=== PATIENT | female | born 1940 | race Caucasian/White ===

== ENCOUNTER → 2019-12-21 | Outpatient (CLI) | payer OTHER ==
[~2019-12-21] MED LIST: ALBU90OI61 INH; ASPI325 PO; Aspir 8181 MG PO; BUDE6HFA; Bystolic10 MG PO; ENOX40I SC; FLUSAL2505 IH; FURO20 PO; LEVFLO500 PO; LORA.5 PO; LOSA50 PO; METO25ER PO; MONT10T PO; POTA8 PO; Ventolin Soln3 ML; WARF5 PO
[2019-12-22 13:30] LABS: Bilirubin, Urine Neg (Neg); Blood, Urine Neg (Neg); Glucose Qualitative, Urine Neg (Neg); Ketones, Urine Neg (Neg); Leukocyte Esterase, Urine 1+ (Neg); Nitrite, Urine Neg (Neg); Protein, Urine Neg (Neg); Urobilinogen, Urine NORM (Normal)
[2019-12-22 13:41] LABS: Color, Urine Yellow (P-Yellow)
[2019-12-22 13:43] LABS: Appearance, Urine Clear (Clear); Bacteria Few /hpf; Red Blood Cells, Urine 0-2 /hpf (0-2); Squamous Epithelial Cells Few /hpf (Few)
== END | disposition home or self-care (01) ==
LOC: LAB 16:30 → LAB SHORT 16:30
PROVIDERS: Physician Assistant Medical
DX: N39.0 Urinary tract infection, site not specified (principal)
CPT/HCPCS: 81001; 87077; 87086; 87186

== ENCOUNTER → 2020-02-03 | Outpatient (CLI) | payer OTHER | END | disposition home or self-care (01) | LOC: LAB 11:21 → LAB SHORT 11:21 | DX: S81.802A Unspecified open wound, left lower leg, initial encounter (principal) | CPT/HCPCS: 87070; 87075; 87077; 87147; 87186; 87205 ==

== ENCOUNTER → 2020-02-23 | Outpatient (CLI) | payer OTHER | END | disposition home or self-care (01) | LOC: LAB SHORT 14:42 → LAB 14:42 | DX: F42.4 Excoriation (skin-picking) disorder (principal); R23.8 Other skin changes | CPT/HCPCS: 87070; 87075; 87205 ==

== ENCOUNTER → 2020-03-01 | Outpatient (CLI) | payer OTHER | END | disposition home or self-care (01) | LOC: LAB SHORT 11:40 → LAB 11:40 | DX: L08.9 Local infection of the skin and subcutaneous tissue, unspecified (principal); B95.62 Methicillin resistant Staphylococcus aureus infection as the cause of diseases classified elsewhere | CPT/HCPCS: 87070; 87205 ==

== ENCOUNTER 2020-09-28 09:05 | Emergency (ER) | payer OTHER ==
[~2020-09-28] VITALS: Ht 162.6 cm; Wt 90.7 kg
[~2020-09-28 09:05] MED LIST changes: -FURO20 PO
[2020-09-28] MEDS ORDERED: MELATONIN5 M1 PO (09:24)
[2020-09-28 10:39] LABS: BASOPHILS ABSOLUTE AUTO 0.05 K/mm3 (0.00-0.23); BASOPHILS PERCENT AUTO 1 % (0-2); EOSINOPHILS ABSOLUTE AUTO 0.09 K/mm3 (0.00-0.68); EOSINOPHILS PERCENT AUTO 1 % (0-6); Hematocrit 42.5 % (33.0-51.0); Hemoglobin 13.2 g/dL (11.5-16.0); IMMATURE GRAN ABSOLUTE AUTO 0.03 K/mm3 (0.00-0.10); IMMATURE GRAN PERCENT AUTO 0 % (0-1); LYMPHOCYTES ABSOLUTE AUTO 0.83 K/mm3 (0.84-5.20); LYMPHOCYTES PERCENT AUTO 10 % (21-46); MONOCYTES ABSOLUTE AUTO 0.67 K/mm3 (0.16-1.47); MONOCYTES PERCENT AUTO 8 % (4-13); Mean Corpuscular HGB 31.4 pg (26.0-34.0); Mean Corpuscular HGB Conc 31.1 g/dL (31.5-36.5); Mean Corpuscular Volume 101 fL (80-100); Mean Platelet Volume 8.9 fL (9.1-12.4); NEUTROPHILS PERCENT AUTO 80 % (41-73); Platelet Count 204 K/mm3 (150-400); RDW Standard Deviation 48.5 fL (35.1-46.3); Red Blood Cell Count 4.21 M/mm3 (3.80-5.20); White Blood Cell Count 8.57 K/mm3 (4.00-11.30)
[2020-09-28 10:58] LABS: Albumin, Blood 3.1 g/dL (3.4-5.0); Albumin/Globulin Ratio 0.9 (0.8-1.8); Bilirubin, Total 0.4 mg/dL (0.1-1.0); Bun/Creatinine Ratio 25.4 (12.0-20.0); Calcium, Blood 8.9 mg/dL (8.5-10.1); Creatinine, Blood 0.98 mg/dL (0.40-1.00); Globulin, Blood 3.6 g/dL (2.2-4.0); Potassium, Blood 3.7 mmol/L (3.5-5.5); Total Protein, Blood 6.7 g/dL (6.4-8.2)
[2020-09-28 12:43] LABS: Source, Urine Catheter
[2020-09-28 12:46] LABS: Appearance, Urine Clear (Clear); Bilirubin, Urine Neg (Neg); Blood, Urine 2+ (Neg); Color, Urine Yellow (P-Yellow); Glucose Qualitative, Urine Neg (Neg); Ketones, Urine Neg (Neg); Leukocyte Esterase, Urine 1+ (Neg); Nitrite, Urine Pos (Neg); Protein, Urine 1+ (Neg); Specific Gravity, Urine 1.015 (1.003-1.022); Urobilinogen, Urine NORM (Normal); pH, Urine 6.5 (5.0-8.0)
[2020-09-28 13:05] LABS: Bacteria Many /hpf; Squamous Epithelial Cells Few /hpf (Few)
[2020-09-28] MEDS ORDERED: METO100ER PO (14:02)
[2020-09-28] MEDS ORDERED: EUTHYROX25 MC1 PO (14:02)
[2020-09-28] MEDS ORDERED: XARELTO20 M1 PO (14:03)
[2020-09-28] MEDS ORDERED: Potassium Chlo20 ME1 PO (14:04)
[2020-09-28] MEDS ORDERED: FURO40 PO (14:04)
[2020-09-28] MEDS ORDERED: SPIRONOLACTONE25 MG PO (14:04)
[2020-09-28] MEDS ORDERED: MEMANTINE HCL ER7 MG PO (14:05)
[2020-09-28] MEDS ORDERED: CEPH500 PO (14:36)
== END 2020-09-28 15:20 | disposition home or self-care (01) ==
LOC: ER 09:05
PROVIDERS: Emergency Medicine
DX: N39.0 Urinary tract infection, site not specified (principal); I48.91 Unspecified atrial fibrillation; F03.90 Unspecified dementia, unspecified severity, without behavioral disturbance, psychotic disturbance, mood disturbance, and anxiety; Z88.0 Allergy status to penicillin; Z79.899 Other long term (current) drug therapy; Z79.51 Long term (current) use of inhaled steroids; Z79.01 Long term (current) use of anticoagulants
CPT/HCPCS: 36415; 70450; 80053; 81001; 85025; 93005; 93010; 96365; 99285-25; J0696

== ENCOUNTER → 2020-10-10 | Outpatient (CLI) | payer OTHER ==
[~2020-10-10] MED LIST changes: +CEPH500 PO; +EUTHYROX25 MC1 PO; +FURO40 PO; +MELATONIN5 M1 PO; +MEMANTINE HCL ER7 MG PO; +METO100ER PO; +Potassium Chlo20 ME1 PO; +SPIRONOLACTONE25 MG PO; +XARELTO20 M1 PO
[2020-10-11 10:24] LABS: Source, Urine Clean Catch
[2020-10-11 12:16] LABS: Appearance, Urine Hazy (Clear); Bilirubin, Urine Neg (Neg); Blood, Urine 1+ (Neg); Color, Urine Yellow (P-Yellow); Glucose Qualitative, Urine Neg (Neg); Ketones, Urine Neg (Neg); Leukocyte Esterase, Urine 3+ (Neg); Nitrite, Urine Pos (Neg); Protein, Urine Neg (Neg); Specific Gravity, Urine 1.015 (1.003-1.022); Urobilinogen, Urine NORM (Normal)
[2020-10-11 12:33] LABS: Bacteria Many /hpf; Red Blood Cells, Urine 0-2 /hpf (0-2); Squamous Epithelial Cells Mod /hpf (Few); White Blood Cells, Urine 25-50 /hpf (0-5)
== END | disposition home or self-care (01) ==
LOC: LAB SHORT 19:00
PROVIDERS: Physician Assistant Medical
DX: N39.0 Urinary tract infection, site not specified (principal)
CPT/HCPCS: 81001; 87077; 87086; 87186

== ENCOUNTER → 2021-01-13 | Outpatient (CLI) | payer OTHER ==
[2021-01-13 12:10] LABS: BASOPHILS ABSOLUTE AUTO 0.06 K/mm3 (0.00-0.23); BASOPHILS PERCENT AUTO 1 % (0-2); EOSINOPHILS PERCENT AUTO 1 % (0-6); Hematocrit 42.4 % (33.0-51.0); Hemoglobin 13.7 g/dL (11.5-16.0); IMMATURE GRAN ABSOLUTE AUTO 0.02 K/mm3 (0.00-0.10); IMMATURE GRAN PERCENT AUTO 0 % (0-1); LYMPHOCYTES ABSOLUTE AUTO 1.01 K/mm3 (0.84-5.20); LYMPHOCYTES PERCENT AUTO 13 % (21-46); MONOCYTES ABSOLUTE AUTO 0.82 K/mm3 (0.16-1.47); MONOCYTES PERCENT AUTO 10 % (4-13); Mean Corpuscular HGB 31.8 pg (26.0-34.0); Mean Corpuscular HGB Conc 32.3 g/dL (31.5-36.5); Mean Corpuscular Volume 98 fL (80-100); Mean Platelet Volume 9.7 fL (9.1-12.4); NEUTROPHILS ABSOLUTE AUTO 6.09 K/mm3 (1.96-9.15); NEUTROPHILS PERCENT AUTO 75 % (41-73); Platelet Count 242 K/mm3 (150-400); RDW Coefficient Variation 12.7 % (11.7-14.2); RDW Standard Deviation 45.9 fL (35.1-46.3); Red Blood Cell Count 4.31 M/mm3 (3.80-5.20)
[2021-01-13 12:40] LABS: Bun/Creatinine Ratio 15.5 (12.0-20.0); Creatinine, Blood 1.03 mg/dL (0.40-1.00); Potassium, Blood 4.1 mmol/L (3.5-5.5); Thyroid Stimulating Hormone 1.88 uIU/mL (0.360-4.800)
== END | disposition home or self-care (01) ==
LOC: LAB SHORT 10:15 → LAB 10:15
PROVIDERS: Internal Medicine
DX: E03.9 Hypothyroidism, unspecified (principal); I10 Essential (primary) hypertension
CPT/HCPCS: 80048; 84443; 85025

== ENCOUNTER → 2021-02-28 | Outpatient (CLI) | payer OTHER ==
[2021-02-28 14:17] LABS: Bun/Creatinine Ratio 16.7 (12.0-20.0); Calcium, Blood 9.4 mg/dL (8.5-10.1); Creatinine, Blood 1.14 mg/dL (0.40-1.00); Potassium, Blood 3.8 mmol/L (3.5-5.5)
== END | disposition home or self-care (01) ==
LOC: LAB 11:03 → LAB SHORT 11:03
PROVIDERS: Internal Medicine
DX: R60.0 Localized edema (principal)
CPT/HCPCS: 80048

== ENCOUNTER → 2021-03-22 | Outpatient (CLI) | payer OTHER ==
[2021-03-22 13:19] LABS: Bun/Creatinine Ratio 21.1 (12.0-20.0); Creatinine, Blood 1.14 mg/dL (0.40-1.00)
== END | disposition home or self-care (01) ==
LOC: LAB SHORT 11:29 → LAB 11:29
PROVIDERS: Internal Medicine
DX: E03.9 Hypothyroidism, unspecified (principal); R60.0 Localized edema
CPT/HCPCS: 80048; 84443

== ENCOUNTER → 2021-04-20 | Outpatient (CLI) | payer OTHER ==
[2021-04-20 12:23] LABS: Bun/Creatinine Ratio 15.2 (12.0-20.0); Calcium, Blood 8.9 mg/dL (8.5-10.1); Creatinine, Blood 0.99 mg/dL (0.40-1.00); Potassium, Blood 4.4 mmol/L (3.5-5.5)
== END | disposition home or self-care (01) ==
LOC: LAB 10:30 → LAB SHORT 10:30
PROVIDERS: Internal Medicine
DX: R73.9 Hyperglycemia, unspecified (principal)
CPT/HCPCS: 80048; 83036

== ENCOUNTER → 2021-08-10 | Outpatient (CLI) | payer OTHER ==
[2021-08-10 19:17] LABS: Source, Urine Clean Catch
[2021-08-10 20:24] LABS: Bilirubin, Urine Neg (Neg); Blood, Urine Neg (Neg); Glucose Qualitative, Urine Neg (Neg); Ketones, Urine Neg (Neg); Leukocyte Esterase, Urine 2+ (Neg); Nitrite, Urine Pos (Neg); Protein, Urine Neg (Neg); Urobilinogen, Urine NORM (Normal)
[2021-08-10 20:36] LABS: Appearance, Urine Hazy (Clear); Color, Urine Yellow (P-Yellow)
[2021-08-10 20:37] LABS: White Blood Cells, Urine 25-50 /hpf (0-5)
[2021-08-10 20:38] LABS: Bacteria Many /hpf; Red Blood Cells, Urine Not Seen /hpf (0-2); Squamous Epithelial Cells Few /hpf (Few)
== END | disposition home or self-care (01) ==
LOC: LAB 11:40 → LAB SHORT 11:40
PROVIDERS: Internal Medicine
DX: N39.0 Urinary tract infection, site not specified (principal)
CPT/HCPCS: 81001; 87077; 87086; 87186

== ENCOUNTER 2022-12-05 09:33 | Inpatient (IN) | payer OTHER ==
[~2022-12-05] VITALS: Ht 165.1 cm; Wt 76.2 kg
[~2022-12-05 09:33] MED LIST changes: -EUTHYROX25 MC1 PO; -FURO40 PO; -SPIRONOLACTONE25 MG PO; -XARELTO20 M1 PO
[2022-12-05 10:28] LABS: BASOPHILS ABSOLUTE AUTO 0.06 K/mm3 (0.00-0.23); BASOPHILS PERCENT AUTO 1 % (0-2); EOSINOPHILS ABSOLUTE AUTO 0.02 K/mm3 (0.00-0.68); EOSINOPHILS PERCENT AUTO 0 % (0-6); Hematocrit 50.9 % (33.0-51.0); Hemoglobin 16.7 g/dL (11.5-16.0); IMMATURE GRAN ABSOLUTE AUTO 0.03 K/mm3 (0.00-0.10); IMMATURE GRAN PERCENT AUTO 0 % (0-1); LYMPHOCYTES ABSOLUTE AUTO 0.67 K/mm3 (0.84-5.20); LYMPHOCYTES PERCENT AUTO 5 % (21-46); MONOCYTES ABSOLUTE AUTO 0.67 K/mm3 (0.16-1.47); MONOCYTES PERCENT AUTO 5 % (4-13); Mean Corpuscular HGB 31.3 pg (26.0-34.0); Mean Corpuscular HGB Conc 32.8 g/dL (31.5-36.5); Mean Corpuscular Volume 96 fL (80-100); Mean Platelet Volume 9.2 fL (9.1-12.4); NEUTROPHILS PERCENT AUTO 88 % (41-73); Platelet Count 228 K/mm3 (150-400); RDW Coefficient Variation 12.5 % (11.7-14.2); RDW Standard Deviation 44.5 fL (35.1-46.3); Red Blood Cell Count 5.33 M/mm3 (3.80-5.20); White Blood Cell Count 12.45 K/mm3 (4.00-11.30)
[2022-12-05 10:33] LABS: Source, Urine Straight Cath
[2022-12-05 10:37] LABS: Appearance, Urine Hazy (Clear); Bilirubin, Urine Neg (Neg); Blood, Urine 3+ (Neg); Color, Urine Yellow (P-Yellow); Glucose Qualitative, Urine Neg (Neg); Ketones, Urine Neg (Neg); Leukocyte Esterase, Urine 2+ (Neg); Nitrite, Urine Pos (Neg); Protein, Urine 3+ (Neg); Specific Gravity, Urine 1.025 (1.003-1.022); Urobilinogen, Urine NORM (Normal)
[2022-12-05 10:46] LABS: Hyaline Casts 50-100 /lpf (0-2)
[2022-12-05 10:48] LABS: Bacteria Many /hpf; Squamous Epithelial Cells Few /hpf (Few)
[2022-12-05 10:50] LABS: Granular Casts 0-2 /lpf (0)
[2022-12-05 10:56] LABS: Albumin, Blood 4.1 g/dL (3.4-5.0); Albumin/Globulin Ratio 1.1 (0.8-1.8); Bilirubin, Total 0.7 mg/dL (0.1-1.0); Bun/Creatinine Ratio 25.1 (12.0-20.0); Calcium, Blood 9.7 mg/dL (8.5-10.1); Creatinine, Blood 0.92 mg/dL (0.40-1.00); Globulin, Blood 3.9 g/dL (2.2-4.0); Potassium, Blood 3.8 mmol/L (3.5-5.5)
[2022-12-05 12:48] LABS: International Normalized Ratio 1.1; Prothrombin Time Results 11.5 Sec (9.7-11.5)
[2022-12-05 14:34] LABS: Hematocrit 40.5 % (33.0-51.0); Hemoglobin 13.3 g/dL (11.5-16.0)
[2022-12-05] MEDS ORDERED: FURO40 PO (15:18)
[2022-12-05] MEDS ORDERED: LEVETIRACETAM50014 PO (15:18)
[2022-12-05] MEDS ORDERED: HYDROCODONE-AC1 EA19 PO (15:18)
[2022-12-05] MEDS ORDERED: XARELTO20 M1 PO (15:19)
[2022-12-05] MEDS ORDERED: SPIRONOLACTONE25 MG PO (15:19)
[2022-12-05] MEDS ORDERED: EUTHYROX25 MC1 PO (15:19)
[2022-12-05] MEDS ORDERED: ALBU90OI INH (16:54)
[2022-12-05] MEDS ORDERED: ACET500 PO (16:55)
[2022-12-05] MEDS ORDERED: BISA10S PR (16:56)
[2022-12-05] MEDS ORDERED: DOCU100 PO (16:58)
[2022-12-05] MEDS ORDERED: MELATONIN5 M1 PO (16:59)
[2022-12-05] MEDS ORDERED: LACT10SY PO (16:59)
[2022-12-05] MEDS ORDERED: DULCOLAX400 MG/5 M PO (17:00)
[2022-12-05] MEDS ORDERED: SENNA LAXATIVE8.6 MG PO (17:01)
[2022-12-05] MEDS ORDERED: NYSTOP15 GM TOP (17:02)
--- NOTE | 2022-12-05 17:46 | NUR ---
MET WITH DAUGHTERSHAUN FAXED FROM [facility]-PT IS DNR WITH CONFORT CARE. PROVIDED EDUATION TO DAUGHTER ON WHAT COMFORT CARE IS, DISCUSSED WHAT HER GOALS OF CARE ARE FOR THE PT. ALEAH REPORTS THAT SHE FEELS LIKE SHE DOESNT KNOW WHAT IS GOING ON WITH HER MOTHER BECAUSE SHE HASNT SPOKEN TO THE DOCTOR. SHE DOESNT FEEL SHE CAN MAKE ANY DECISIONS UNIT SHE HAS MORE INFORMATION. PROVIDED INFORMATION ON PT ADMITTING DIAGNOSIS. PROVIDED EDUCATION ON UTI, SEPSIS AND THE COFFEE GROUND EMESIS. WE DISCUSSED WHAT TREATMENTS AND TESTING THAT IS BEING DONE TONSHAGGY AND WE WILL REVISIT TOMORROW WHEN THE DOCTOR ROUNDS, SHE IS AGREEABLE TO THIS PLAN. PROVIDED MY CARD WITH CONTACT INFORMATION ON IT SO SHE CAN CONTACT PALLIATIVE CARE FOR ANY ADDITIONAL NEEDS OR CONCERNS. CALL PLACED TO DR HARRIS, ADVISED AFTER PT WAS ADMITTED, WE RECIEVED PT SHAUN AND IT IS DNR WITH CONFORT CARE. DR HARRIS WILL ROUND ON THE PT TOMORROW AND FOLLOW UP WITH FAMILY. DR HARRIS GAVE VO TO CHANGE ADMITTING CODE STATUS FROM A FULL CODE TO DNR. ORDER PLACED AND [facility]RLEN [facility]IU UPDATED ON CHANGE IN CODE STATUS AND PLAN ON CARE FOR TONIGHT. PALLIATIVE CARE WILL CONTINUE TO FOLLOW.
--- NOTE | 2022-12-05 19:20 | NUR ---
SHIFT SUMMARY- PT ADMITTED THROUGH THE ED FOR UTI SEPSIS. UPON ARRIVAL FROM ED THE PT BED WAS SOILED WITH BLACK TARRY STOOL. LINNENS CHANGED AND THE PT HAD A SUDDEN EPISODE FO COFFEE GROUND EMESIS. FULL LINNEN CHANGE PERFORMED AGAIN. PT DAUGHTER WAS AT THE BEDSIDE WHEN THE PT ARRIVED. PALLIATIVE CARE CONSULT WAS CALLED AND THEY CAME TO SEE THE PT AND HER DAUGHTER. CONTACTED [facility] FOR A COPY OF THE PT MED REC AND HER POLST FORM. PALLIATIVE CARE RN UPDATED THE PT CODE STATUS. CALLED DR HARRIS ABOUT THE EMESIS AND STOOL RECIEVED AN ORDER FOR OCCULT GUIACC ON NEXT STOOL. H&H AT 2100, PROTONIX IV ALREADY GIVEN, DIET CHANGED TO CLEAR LIQUID. PT HAD ANOTHER EPISODE OF LIQUID BLACK STOOL, GUIACC COLLECTED AND SENT TO THE LAB, DANE CHANGE COMPLETED AGAIN. PT HAD 2 IV'S ON ARRIVAL, SHE REMOVED THE ONE IN THE BACK OF HER LEFT HAND IMMEDIATELY, THERE IS A LARGE BRUISE THERE NOW. THE RIGHT AC IV IS PATENT AND IS CURRENTLY RUNNING LR AT 100ML/HR. BEDSIDE REPORT COMPLETED WITH NIGHT RN, IV LINE WAS OBSCURED FROM THE PT WITH COBAN, PT WAS REMOVING IT. STAFF REAPPLIED IT. PT APPEARED TO HAVE HAD SOME MORE DARK COLORED EMESIS, SOME SOILED LINNENS CHANGED. NIGHT RN AWARE AND WILL CTM AT THIS TIME.
[2022-12-05 23:30] LABS: Hematocrit 39.9 % (33.0-51.0); Hemoglobin 13.3 g/dL (11.5-16.0)
[2022-12-06 05:26] LABS: Hemoglobin 12.9 g/dL (11.5-16.0); Mean Corpuscular HGB 31.4 pg (26.0-34.0); Mean Corpuscular HGB Conc 33.1 g/dL (31.5-36.5); Mean Corpuscular Volume 95 fL (80-100); Mean Platelet Volume 9.6 fL (9.1-12.4); Platelet Count 204 K/mm3 (150-400); RDW Coefficient Variation 12.6 % (11.7-14.2); RDW Standard Deviation 43.7 fL (35.1-46.3); Red Blood Cell Count 4.11 M/mm3 (3.80-5.20); White Blood Cell Count 8.74 K/mm3 (4.00-11.30)
[2022-12-06 05:44] LABS: Bun/Creatinine Ratio 34.6 (12.0-20.0); Calcium, Blood 8.8 mg/dL (8.5-10.1); Creatinine, Blood 0.78 mg/dL (0.40-1.00); Magnesium, Blood 2.2 mg/dL (1.6-2.4); Potassium, Blood 3.3 mmol/L (3.5-5.5)
[2022-12-06 09:25] LABS: Stool Occult Blood Guaiac 1 Pos (Neg)
--- NOTE | 2022-12-06 14:57 | NUR ---
RECIEVED A CALL FROM [facility] FOR UPDATE ON PT CONDITION AND POSSIBLE DC PLANS. PLAN IS TO MONITOR UNTIL TOMORROW, IF STILL STABLE THE PT WILL DC BACK TO [facility].
--- NOTE | 2022-12-06 15:42 | NUR ---
Patient is lying in bed and alert. Her dtr, Paula is bedside. Paula talks at length about the struggles of care giving for her mom with dementia since 2014. She was diagnosed with A-fib and then dementia and Paula gets tearful as she shares about the journey and the seperation as her mom slowly forgot who her dtr was. Patient scratches at the bed and her picture book while we talk. I provided therapeutic listening and prayer. Paula voiced appreciation and showed signs of being encouraged and inspired in the path she is on with her mother. I will continue to remain available to patient and family.
[2022-12-06 16:13] LABS: Hematocrit 39.7 % (33.0-51.0); Hemoglobin 13.4 g/dL (11.5-16.0)
--- NOTE | 2022-12-06 17:18 | NUR ---
SHIFT SUMMARY- PT ALERT, UNABLE TO DETERMINE THE PT ORIENTATION SHE IS NON VERBAL. THE PT DAUGHTER STATES SHE AND HER MOTHER ARE THE LAST LIVING RELATIVE FOR EACH OTHER. SHE WAS TEARFUL A BIT OFF AND ON T/O HER VISIT. SHE VISITED WITH SPIRITUAL CARE TODAY AND SEEMED A LITTLE ENCOURAGED AFTER HER VISIT. THE PT HAS REMAINED FIDGETTY AND HAS NOT SLEPT AT ALL TODAY. THE PT WAS ABLE TO TAKE PO MEDS CRUSHED IN APPLE SAUCE. SHE HAD A PERSON THAT CAME IN THAT REFERED TO HER GRANDMA, BUT THERE WAS NO PERMISSION TO SPEAK TO THEM ABOUT THE PT MEDICAL INFORMATION. THEY ARE AWARE NO PERMISSION HAS BEEN GIVEN, SO NO INFORMATION WAS RELAYED TO THEM. PLAN IS FOR THE PT TO BE DISCHARGED BACK TO [facility] TOMORROW IF HER HGB REMAINS STABLE. LAST HBG WAS INCREASED FROM THE PREVIOUS. PT HAS HAD NO EPISODES OF BLACK LIQUID STOOLS TODAY. NO EMESIS TODAY. PT IS CURRENTLY IN BED, CHAIR CAR ATTENDANT IS CHANGING HER WITH SHIPPING AND RECEIVING ASSOCIATE STUDENT. THE PT FAVORS HER LEFT SIDE AND REPOSITIONS HERSELF ONTO THE LEFT EACH TIME STAFF ROLL HER OFF OF IT. THE PT IS FEARFUL BEING ROLLED AND FIGHTS WITH THE STAFF WHEN THEY ATTEMPT TO CHANGE HER. WILL CTM AND PASS ON TO NIGHT RN IN BEDSIDE REPORT.
[2022-12-07 05:30] LABS: Hematocrit 39.8 % (33.0-51.0); Hemoglobin 12.9 g/dL (11.5-16.0); Mean Corpuscular HGB 31.1 pg (26.0-34.0); Mean Corpuscular HGB Conc 32.4 g/dL (31.5-36.5); Mean Corpuscular Volume 96 fL (80-100); Mean Platelet Volume 9.7 fL (9.1-12.4); Platelet Count 203 K/mm3 (150-400); RDW Coefficient Variation 12.6 % (11.7-14.2); RDW Standard Deviation 44.2 fL (35.1-46.3); Red Blood Cell Count 4.15 M/mm3 (3.80-5.20); White Blood Cell Count 9.73 K/mm3 (4.00-11.30)
--- NOTE | 2022-12-07 06:00 | NUR ---
END OF SHIFT NURSING REPORT - PM Admitted from [facility] for nausea, coffe-ground vomit and black-loose stool. No stool output during shift. She has severe dementia, speech is mumbled, incoherent, disorganised and illological. Anxiety noted through fidgeting hands, pulling on cloth and tight rail holds during hygiene cleaning. She is oriented to self only, and unable to follow commands. Appears to responds well to soothing talk and touch during care. Am Labs collected without distress to PT.
[2022-12-07 06:08] LABS: Calcium, Blood 8.7 mg/dL (8.5-10.1); Creatinine, Blood 0.84 mg/dL (0.40-1.00); Potassium, Blood 3.8 mmol/L (3.5-5.5)
--- NOTE | 2022-12-07 10:25 | NUR ---
CALLED DR NEWMAN- FINAL RESULT CAME BACK FOR THE PT URINE CULTURE, AWARE. PT HAS HAD NO FURTHER EPISODES OF COFFEE GROUND EMESIS OR BLACK STOOLS. PT TO DC BACK TO [facility] LATER TODAY.
[2022-12-07] MEDS ORDERED: METO25 PO (11:35)
[2022-12-07] MEDS ORDERED: PANT40 PO (11:37)
[2022-12-07] MEDS ORDERED: MACRODANTIN PO (11:38)
--- NOTE | 2022-12-07 14:46 | NUR ---
DISCHARGE NOTE- PT DAUGHTER WAS GIVEN VERBAL AND WRITTEN DISCHARGE INSTRUCTIONS AND ANCKNOWLEDGED UNDERSTANDING OF THEM. PT WAS TAKEN VIA WC TRANSPORT BACK TO HER FACILITY. NO S&S OF DISTRESS NOTED AT THE TIME OF DISCHARGE.
== END 2022-12-07 13:34 | disposition home or self-care (01) | DRG 378 ==
LOC: ER 09:33 → MEDS 13:29
PROVIDERS: Emergency Medicine; Internal Medicine; Nurse Practitioner Acute Care; ADMIT Internal Medicine
DX: K92.0 Hematemesis (principal); I50.32 Chronic diastolic (congestive) heart failure; N39.0 Urinary tract infection, site not specified; Z66 Do not resuscitate; I48.91 Unspecified atrial fibrillation; E03.9 Hypothyroidism, unspecified; B96.20 Unspecified Escherichia coli [E. coli] as the cause of diseases classified elsewhere; F03.90 Unspecified dementia, unspecified severity, without behavioral disturbance, psychotic disturbance, mood disturbance, and anxiety; E87.6 Hypokalemia; I95.9 Hypotension, unspecified; Z88.0 Allergy status to penicillin; Z79.01 Long term (current) use of anticoagulants; Z79.2 Long term (current) use of antibiotics; Z79.890 Hormone replacement therapy; Z79.899 Other long term (current) drug therapy
CPT/HCPCS: 36415; 80048; 80053; 81001; 82272; 83605; 83690; 83735; 85014; 85018; 85025; 85027; 85610; 87040; 87077; 87086; 87186; 93005; 93010; 96365; 96375; 99285-25; A9270; C9113; J1956; J2405; J3480; J7030; J7120; P9612

== ENCOUNTER → 2023-11-25 | Outpatient (CLI) | payer OTHER ==
[~2023-11-25] MED LIST changes: +ACET500 PO; +ALBU90OI INH; +BISA10S PR; +DOCU100 PO; +DULCOLAX400 MG/5 M PO; +EUTHYROX25 MC1 PO; +FURO40 PO; +HYDROCODONE-AC1 EA19 PO; +LACT10SY PO; +LEVETIRACETAM50014 PO; +MACRODANTIN PO; +METO25 PO; +NYSTOP15 GM TOP; +PANT40 PO; +SENNA LAXATIVE8.6 MG PO; +SPIRONOLACTONE25 MG PO; +XARELTO20 M1 PO
[2023-11-25 17:51] LABS: BASOPHILS ABSOLUTE AUTO 0.04 K/mm3 (0.00-0.23); BASOPHILS PERCENT AUTO 0 % (0-2); EOSINOPHILS ABSOLUTE AUTO 0.13 K/mm3 (0.00-0.68); EOSINOPHILS PERCENT AUTO 1 % (0-6); Hematocrit 47.1 % (33.0-51.0); IMMATURE GRAN ABSOLUTE AUTO 0.02 K/mm3 (0.00-0.10); IMMATURE GRAN PERCENT AUTO 0 % (0-1); LYMPHOCYTES ABSOLUTE AUTO 1.79 K/mm3 (0.84-5.20); LYMPHOCYTES PERCENT AUTO 19 % (21-46); MONOCYTES ABSOLUTE AUTO 0.69 K/mm3 (0.16-1.47); MONOCYTES PERCENT AUTO 7 % (4-13); Mean Corpuscular HGB 31.2 pg (26.0-34.0); Mean Corpuscular HGB Conc 31.8 g/dL (31.5-36.5); Mean Corpuscular Volume 98 fL (80-100); Mean Platelet Volume 10.4 fL (9.1-12.4); NEUTROPHILS ABSOLUTE AUTO 6.67 K/mm3 (1.96-9.15); NEUTROPHILS PERCENT AUTO 71 % (41-73); Platelet Count 223 K/mm3 (150-400); RDW Coefficient Variation 13.1 % (11.7-14.2); RDW Standard Deviation 46.7 fL (35.1-46.3); Red Blood Cell Count 4.81 M/mm3 (3.80-5.20); White Blood Cell Count 9.34 K/mm3 (4.00-11.30)
[2023-11-25 19:50] LABS: Albumin, Blood 3.9 g/dL (3.4-5.0); Albumin/Globulin Ratio 1.1 (0.8-1.8); Bilirubin, Total 0.7 mg/dL (0.1-1.0); Bun/Creatinine Ratio 22.3 (12.0-20.0); Calcium, Blood 9.7 mg/dL (8.5-10.1); Creatinine, Blood 0.99 mg/dL (0.40-1.00); Globulin, Blood 3.4 g/dL (2.2-4.0); Thyroid Stimulating Hormone 1.53 uIU/mL (0.360-4.800); Total Protein, Blood 7.3 g/dL (6.4-8.2)
== END | disposition home or self-care (01) ==
LOC: LAB SHORT 17:00 → LAB 17:00
PROVIDERS: Internal Medicine
DX: I48.11 Longstanding persistent atrial fibrillation (principal); N18.31 Chronic kidney disease, stage 3a; R73.9 Hyperglycemia, unspecified; Z79.01 Long term (current) use of anticoagulants
CPT/HCPCS: 80053; 83036; 84443; 85025

== ENCOUNTER → 2024-07-28 | Outpatient (CLI) | payer OTHER ==
[2024-07-28 14:27] LABS: BASOPHILS ABSOLUTE AUTO 0.06 K/mm3 (0.00-0.23); BASOPHILS PERCENT AUTO 1 % (0-2); EOSINOPHILS ABSOLUTE AUTO 0.05 K/mm3 (0.00-0.68); EOSINOPHILS PERCENT AUTO 1 % (0-6); Hematocrit 45.2 % (33.0-51.0); Hemoglobin 14.9 g/dL (11.5-16.0); IMMATURE GRAN ABSOLUTE AUTO 0.01 K/mm3 (0.00-0.10); IMMATURE GRAN PERCENT AUTO 0 % (0-1); LYMPHOCYTES ABSOLUTE AUTO 1.43 K/mm3 (0.84-5.20); LYMPHOCYTES PERCENT AUTO 21 % (21-46); MONOCYTES ABSOLUTE AUTO 0.55 K/mm3 (0.16-1.47); MONOCYTES PERCENT AUTO 8 % (4-13); Mean Corpuscular HGB 32.4 pg (26.0-34.0); Mean Corpuscular Volume 98 fL (80-100); Mean Platelet Volume 10.4 fL (9.1-12.4); NEUTROPHILS ABSOLUTE AUTO 4.77 K/mm3 (1.96-9.15); NEUTROPHILS PERCENT AUTO 70 % (41-73); Platelet Count 204 K/mm3 (150-400); RDW Coefficient Variation 12.5 % (11.7-14.2); RDW Standard Deviation 45.1 fL (35.1-46.3); White Blood Cell Count 6.87 K/mm3 (4.00-11.30)
[2024-07-28 20:32] LABS: Albumin, Blood 3.6 g/dL (3.4-5.0); Albumin/Globulin Ratio 1.1 (0.8-1.8); Bilirubin, Total 1.1 mg/dL (0.1-1.0); Calcium, Blood 9.1 mg/dL (8.5-10.1); Creatinine, Blood 0.93 mg/dL (0.40-1.00); Globulin, Blood 3.2 g/dL (2.2-4.0); Potassium, Blood 4.1 mmol/L (3.5-5.5); Thyroid Stimulating Hormone 1.31 uIU/mL (0.360-4.800); Total Protein, Blood 6.8 g/dL (6.4-8.2)
== END | disposition home or self-care (01) ==
LOC: LAB SHORT 11:37 → LAB 11:37
PROVIDERS: Internal Medicine
DX: Z51.81 Encounter for therapeutic drug level monitoring (principal); K21.9 Gastro-esophageal reflux disease without esophagitis; N39.46 Mixed incontinence; E03.9 Hypothyroidism, unspecified; I48.11 Longstanding persistent atrial fibrillation; Z79.01 Long term (current) use of anticoagulants
CPT/HCPCS: 80053; 84443; 85025

== ENCOUNTER → 2025-05-12 | Outpatient (CLI) | payer OTHER ==
[2025-05-12 19:29] LABS: BASOPHILS ABSOLUTE AUTO 0.06 K/mm3 (0.00-0.23); BASOPHILS PERCENT AUTO 1 % (0-2); EOSINOPHILS ABSOLUTE AUTO 0.13 K/mm3 (0.00-0.68); EOSINOPHILS PERCENT AUTO 2 % (0-6); Hematocrit 43.9 % (33.0-51.0); Hemoglobin 14.5 g/dL (11.5-16.0); IMMATURE GRAN ABSOLUTE AUTO 0.04 K/mm3 (0.00-0.10); IMMATURE GRAN PERCENT AUTO 1 % (0-1); LYMPHOCYTES ABSOLUTE AUTO 1.79 K/mm3 (0.84-5.20); LYMPHOCYTES PERCENT AUTO 24 % (21-46); MONOCYTES ABSOLUTE AUTO 0.64 K/mm3 (0.16-1.47); MONOCYTES PERCENT AUTO 9 % (4-13); Mean Corpuscular HGB Conc 33.0 g/dL (31.5-36.5); Mean Corpuscular Volume 98 fL (80-100); NEUTROPHILS ABSOLUTE AUTO 4.69 K/mm3 (1.96-9.15); NEUTROPHILS PERCENT AUTO 64 % (41-73); NRBC ABSOLUTE 0.00 K/mm3 (0.00-0.02); NRBC Auto 0.0 /100 WBC (0.0-0.2); Platelet Count 214 K/mm3 (150-400); RDW Coefficient Variation 13.0 % (11.7-14.2); RDW Standard Deviation 46.9 fL (35.1-46.3)
[2025-05-12 19:55] LABS: Alanine Aminotransfer (ALT/SGP 30.0 U/L (12-78); Albumin, Blood 3.6 g/dL (3.4-5.0); Albumin/Globulin Ratio 1.1 (0.8-1.8); Anion Gap 6.0 mmol/L (3-11); Aspartate Aminotrans (AST/SGOT 22.0 U/L (12-37); Bilirubin, Total 0.6 mg/dL (0.1-1.0); Blood Urea Nitrogen 17.0 mg/dL (8-24); CO2, Blood 28.0 mmol/L (21-32); Calcium, Blood 9.2 mg/dL (8.5-10.1); Chloride, Blood 109.0 mmol/L (98-108); Creatinine, Blood 0.85 mg/dL (0.40-1.00); Globulin, Blood 3.3 g/dL (2.2-4.0); Glucose, Blood 89.0 mg/dL (70-99); Potassium, Blood 4.1 mmol/L (3.5-5.5); Sodium, Blood 139.0 mmol/L (136-145); Thyroid Stimulating Hormone 2.25 uIU/mL (0.360-4.800); Total Protein, Blood 6.9 g/dL (6.4-8.2)
== END | disposition home or self-care (01) ==
LOC: LAB SHORT 16:58 → LAB 16:58
PROVIDERS: Internal Medicine
DX: E03.9 Hypothyroidism, unspecified (principal); N18.31 Chronic kidney disease, stage 3a; R63.4 Abnormal weight loss
CPT/HCPCS: 80053; 84443; 85025